=== PATIENT | male | born 1995 | race Caucasian/White ===

== ENCOUNTER → 2022-02-04 15:12 | Outpatient (BNVA) | payer SELFPAY | PROVIDERS: Visit Provider Emergency Medicine | DX: R05.9 Cough, unspecified (principal); R06.02 Shortness of breath; R06.2 Wheezing | CPT/HCPCS: 71046 ==

== ENCOUNTER → 2022-02-22 15:17 | Outpatient (BNVA) | payer SELFPAY | PROVIDERS: PCP Emergency Medicine; Visit Provider Internal Medicine Critical Care Medicine | DX: J45.909 Unspecified asthma, uncomplicated (principal); R06.02 Shortness of breath | CPT/HCPCS: 82785; 85025; 86003 ==